=== PATIENT | female | born 1985 ===

== ENCOUNTER 2019-10-03 21:27 | Emergency (ER) | payer MEDICAID, SELFPAY ==
[2019-10-03 21:34] VITALS: BP 145/81; PULSE 88; RESP 16; TEMP 36.3; O2SAT 99; BMI 25.8
--- NOTE | 2019-10-03 21:39 | US_ITS ---
WS: [id number] Ultrasound OB limited. Transabdominal and transvaginal imaging is performed of an early intrauterine gestation. HISTORY: Bleeding and pain. There is an IUP with cardiac activity 122 bpm. Mora-rump length of 0.5 cm corresponds to a gestation of 6 weeks and 2 days. There is a small adjacent subchorionic hemorrhage measuring 1.1 x 0.6 x 0.8 c m. Cervix is closed and normal length. There is a yolk sac. There is a moderate amount of free fluid in the pelvis which is mildly complex with low-level echoes. Fluid extends greatest to the RIGHT adnexa. In the RIGHT ovary there is a thick walled cyst with sli ght increased vascularity. The cystic component measures 1.5 x 1.3 x 1.4 cm. The complex fluid extend s to this complex thick-walled cyst. The LEFT ovary contains small follicles and is normal size at 3. 1 x 1.6 x 1.6 cm. US/US OB lmt with transvaginal IMPRESSION: 1. Intrauterine gestation 6 weeks 2 days with an EDC of 05/26/2020. 2. Moderate amount of complex fluid fluid in the pelvis extending to the RIGHT adnexa and RIGHT ovary. Suspect hemorrhagic corpus luteum cyst. Concomitant ec topic may appear similar but with an intrauterine gestation much less likely.
[2019-10-03 22:00] LABS: Basophils % 0.4 %; Eosinophils # 0.1 10^3/uL (0.0-0.8); Eosinophils % 1.4 %; Hematocrit 38.5 % (37.0-47.0); Hemoglobin 12.9 g/dL (11.5-15.3); Lymphocytes # 2.4 10^3/uL (0.8-4.8); Mean Corpuscular HGB Conc 33.5 g/dL (30.0-36.0); Mean Corpuscular Hemoglobin 30.8 pg (28.0-34.0); Mean Corpuscular Volume 91.9 fL (81-99); Mean Platelet Volume 10.6 fL (7.4-10.4); Monocytes # 0.9 10^3/uL (0.2-0.9); Monocytes % 8.6 %; Neutrophils # 6.9 10^3/uL (1.8-7.7); Neutrophils % 66.3 %; Nucleated Red Blood Cells % 0 %; Platelet Count 317 10^3/cmm (130-400); Red Blood Count 4.19 10^6/uL (4.1-5.3); Red Cell Distribution Width 12.6 % (12.1-15.1); White Blood Count 10.3 10^3/uL (4.0-10.0)
--- NOTE | 2019-10-03 22:32 | ED_ITS ---
Entered by Carmela Tinajero, acting as scribe for Presley Nicole DO Oct 03, 2019 21:27 HPI - Abdominal Pain General: Chief Complaint: Abdominal Pain Stated Complaint: 7WKS PREG, BLEEDING Time Seen by Provider: 10/03/19 22:32 Source: patient Mode of arrival: ambulatory Limitations: no limitations History of Present Illness: HPI narrative: 34 yo f came to the er pov for abd pain, 6-7 weeks pregant and is bleeding. G3, P1. Her first was a miscarriage. She noticed bleeding on Friday, a small amount it stopped by Friday. She started bleeding again at noon today, with increased bleeding throughout the day. It has slowed down now some. Associated Symptoms: Reports nausea; Denies chills, fever(s) and vomiting Review of Systems Const: Denies: fever or chills Eyes: Denies: blurry vision Card: Denies: chest pain or palpitations Resp: Denies: shortness of breath, productive cough or non-productive cough GI: Reports: nausea; Denies: vomiting Skin/Breast: Denies: rash or redness Neuro: Denies: dizziness PFSH ED PFSH: Statuses (acute, chronic, etc) shown below reflect problem list status as previously entered and may not be historically accurate Social History Smoking and tobacco status: never smoked Physical Exam Const: COMMON NORMALS: no apparent distress and oriented x3 Eye: COMMON NORMALS: PERRL and EOMs intact bilaterally PUPIL: Yes PERRL Chest: COMMONS NORMALS: inspection of chest normal Resp: COMMON NORMALS: normal respiratory effort and no use of accessory muscles Cardio: COMMON NORMALS: regular rhythm RHYTHM: regular rhythm GI: PALPATION: Yes tender Details: other (suprapubic) RECTAL EXAM: deferred : SPECULUM EXAM - VAGINA: No vaginal erythema, Yes vaginal bleeding, No vaginal tenderness and No vaginal discharge SPECULUM EXAM - CERVIX: Yes cervical os closed, No tissue present in the cervical os and Yes cervical bleeding (mild, dark blood no clot) OB/EXTERNAL & SPECULUM: vaginal bleeding Neuro: COMMON NORMALS: oriented x3 Skin: COMMON NORMALS: no rashes or lesions noted GENERAL SKIN EXAM: no rashes or lesions noted Course ED course: Pelvic exam showed a closed cervix with really scant old blood at this point. No clots. Her ultrasound though is concerning, as there is fluid in the uterus with a subchorionic bleed. This is by definition a threatened . Heart rate present though. Warning signs for return given. She will follow-up with her mysql database administrator. Vital Signs: Vital signs: Vital Signs Temperature 97.4 F L 10/03/19 21:34 Pulse Rate 88 10/03/19 21:34 Respiratory Rate 16 10/03/19 21:34 Blood Pressure 145/81 10/03/19 21:34 Pulse Oximetry 99 10/03/19 21:34 MDM - Abdominal Pain Lab Data: Labs: Lab Results 10/03/19 10/03/19 10/03/19 Range/Units 21:55 21:55 21:55 WBC 10.3 H (4.0-10.0) 10^3/ uL RBC 4.19 (4.1-5.3) 10^6/u L Hgb 12.9 (11.5-15.3) g/dL Hct 38.5 (37.0-47.0) % MCV 91.9 (81-99) fL MCH 30.8 (28.0-34.0) pg MCHC 33.5 (30.0-36.0) g/dL RDW 12.6 (12.1-15.1) % Plt Count 317 (130-400) 10^3/c mm MPV 10.6 H (7.4-10.4) fL Neut % (Auto) 66.3 % Lymph % (Auto) 23.0 % Loup % (Auto) 8.6 % Eos % (Auto) 1.4 % Baso % (Auto) 0.4 % Neut # (Auto) 6.9 (1.8-7.7) 10^3/u L Lymph # (Auto) 2.4 (0.8-4.8) 10^3/u L Loup # (Auto) 0.9 (0.2-0.9) 10^3/u L Eos # (Auto) 0.1 (0.0-0.8) 10^3/u L Baso # (Auto) 0.0 (0.0-0.1) 10^3/u L Nucleated RBC % (a uto) 0 % Nucleated RBCs # 0.0 /100WBC Sodium (136-145) mmol/L Potassium (3.5-5.1) mmol/L Chloride (98-107) mmol/L Carbon Dioxide (22-29) mmol/L Anion Gap (5-19) BUN (6-20) mg/dL Creatinine (0.5-0.9) mg/dL GFR Calculation (90-130) mL/min Glucose (74-109) mg/dL Calcium (8.5-10.5) mg/dL Total Bilirubin (0.15-1.2) mg/dL AST (0-32) U/L ALT (0-33) U/L Alkaline Phosphata se (35-105) IU/L Total Protein (6.6-8.7) g/dL Albumin (3.5-5.2) g/dL Globulin (1.3-4.6) g/dL Ser , [place]Qnt 97011.00 mIU/mL Blood Type O Positive 10/03/19 Range/Units 21:55 WBC (4.0-10.0) 10^3/ uL RBC (4.1-5.3) 10^6/u L Hgb (11.5-15.3) g/dL Hct (37.0-47.0) % MCV (81-99) fL MCH (28.0-34.0) pg MCHC (30.0-36.0) g/dL RDW (12.1-15.1) % Plt Count (130-400) 10^3/c mm MPV (7.4-10.4) fL Neut % (Auto) % Lymph % (Auto) % Loup % (Auto) % Eos % (Auto) % Baso % (Auto) % Neut # (Auto) (1.8-7.7) 10^3/u L Lymph # (Auto) (0.8-4.8) 10^3/u L Loup # (Auto) (0.2-0.9) 10^3/u L Eos # (Auto) (0.0-0.8) 10^3/u L Baso # (Auto) (0.0-0.1) 10^3/u L Nucleated RBC % (a uto) % Nucleated RBCs # /100WBC Sodium 138 (136-145) mmol/L Potassium 4.1 (3.5-5.1) mmol/L Chloride 101 (98-107) mmol/L Carbon Dioxide 23 (22-29) mmol/L Anion Gap 18.1 (5-19) BUN 10 (6-20) mg/dL Creatinine 0.7 (0.5-0.9) mg/dL GFR Calculation 96.4 (90-130) mL/min Glucose 84 (74-109) mg/dL Calcium 9.9 (8.5-10.5) mg/dL Total Bilirubin 0.3 (0.15-1.2) mg/dL AST 18 (0-32) U/L ALT 11 (0-33) U/L Alkaline Phosphata se 68 (35-105) IU/L Total Protein 7.5 (6.6-8.7) g/dL Albumin 4.7 (3.5-5.2) g/dL Globulin 2.8 (1.3-4.6) g/dL Ser , Lionel i-Qnt mIU/mL Blood Type Discharge Plan Discharge Patient Disposition: Home, Self-Care Clinical Impression: Threatened Condition: Stable Prescriptions: No Action No Known Home Medications RF: 0 Discharge Orders: Discharge Order (Routine); Ordered 10/03/19 Ordered By: Presley Nicole Referrals: Ashleigh Landa MD [Physician] - 1-3 days Discharge Diet: Usual diet Discharge Activity: Limit activity as instructed Patient Instructions: Threatened Miscarriage (ED) Activity Restrictions/Additional Instructions: Pelvic rest (no sexual intercourse) limit lifting to 10 to 15 pounds, limit stairs, squatting, etc. until cleared by your doctor. You need to have your blood test drawn again in 2 to 4 days. Call your doctor's office in the morning to let them know you were here and they can help set this up for you. Return to the emergency room for brisk vaginal bleeding, soaking 1 pad per hour for more than 3 hours. Return for fever greater than 100, vomiting liquids or medications, worsening pain despite treatment, other concerning symptoms. Discharge Date/Time: 10/03/19 23:43 Coding Level of Care Code ED Landmen for Chg Fwd Exam Problem Focused The documentation recorded by the Lior nath Stephanie Lyn, harry re flects the service I personally performed and the decisions made by , Presley Nicole DO Oct 03, 2019:27
[2019-10-03 22:56] LABS: Alanine Aminotransferase 11 U/L (0-33); Albumin Level 4.7 g/dL (3.5-5.2); Alkaline Phosphatase 68 IU/L (35-105); Anion Gap 18.1 (5-19); Blood Urea Nitrogen 10 mg/dL (6-20); Calcium 9.9 mg/dL (8.5-10.5); Carbon Dioxide 23 mmol/L (22-29); Chloride 101 mmol/L (98-107); Globulin 2.8 g/dL (1.3-4.6); Glomerular Filtration Rate 96.4 mL/min (90-130); Glucose 84 mg/dL (74-109); Potassium 4.1 mmol/L (3.5-5.1); Sodium 138 mmol/L (136-145); Total Bilirubin 0.3 mg/dL (0.15-1.2); Total Protein 7.5 g/dL (6.6-8.7)
[2019-10-03 22:58] LABS: Aspartate Amino Transferase 18 U/L (0-32)
--- NOTE | 2019-10-03 22:59 | PC.NURSE ---
patient still in ultrasound at this time
== END 2019-10-03 23:43 | disposition home or self-care (01) ==
PROVIDERS: Emergency Medicine; Emergency Provider Emergency Medicine
DX: O20.0 Threatened abortion (principal); Z3A.01 Less than 8 weeks gestation of pregnancy
CPT/HCPCS: 36415; 76815; 76817; 80053; 84702; 85025; 86900; 99281

== ENCOUNTER 2020-01-28 10:58 | Outpatient (CLI) | payer MEDICAID, SELFPAY ==
[2020-01-28 11:28] VITALS: BP 124/75; PULSE 93
[2020-01-28 11:47] VITALS: BP 110/65; PULSE 80
[2020-01-28 12:02] VITALS: BP 119/65; PULSE 79
[2020-01-28 12:17] VITALS: BP 115/67; PULSE 77
[2020-01-28 12:30] VITALS: RESP 16; TEMP 36.4
[2020-01-28 12:32] VITALS: BP 99/65; PULSE 75
== END 2020-01-28 12:50 | disposition home or self-care (01) ==
LOC: OPOB 11:01 → OBGYN 11:01
PROVIDERS: Visit Provider Family Medicine
DX: O36.8190 Decreased fetal movements, unspecified trimester, not applicable or unspecified (principal); Z3A.00 Weeks of gestation of pregnancy not specified
CPT/HCPCS: 59025; 99211

== ENCOUNTER 2020-05-10 09:40 | Inpatient (IN) | payer MEDICAID, SELFPAY ==
[2020-05-10] VITALS (13 sets, daily range): BP systolic 101–142; BP diastolic 59–95; PULSE 55–100; RESP 16–17; TEMP 36.5–37.2; O2SAT 98
--- NOTE | 2020-05-10 09:40 | PC.NURSE ---
Pt arrived on OB unit at 0940 with c/o contractions and SROM at 0300. Pt was assessed by Zahra Rebolledo RN at this time.
[2020-05-10] MEDS: acetaminophen 325 mg Tablet 650 MG PO (11:10)
[2020-05-10 15:59] LABS: Basophils # 0.1 10^3/uL (0.0-0.1); Basophils % 0.3 %; Eosinophils % 0.1 %; Hematocrit 37.2 % (37.0-47.0); Hemoglobin 12.4 g/dL (11.5-15.3); Lymphocytes # 1.1 10^3/uL (0.8-4.8); Lymphocytes % 4.8 %; Mean Corpuscular HGB Conc 33.3 g/dL (30.0-36.0); Mean Corpuscular Hemoglobin 32.5 pg (28.0-34.0); Mean Corpuscular Volume 97.4 fL (81-99); Mean Platelet Volume 12.6 fL (7.4-10.4); Monocytes # 1.3 10^3/uL (0.2-0.9); Monocytes % 5.6 %; Neutrophils # 20.04 10^3/uL (1.8-7.7); Neutrophils % 88.4 %; Nucleated Red Blood Cells % 0 %; Platelet Count 193 10^3/cmm (130-400); Red Blood Count 3.82 10^6/uL (4.1-5.3); Red Cell Distribution Width 13.7 % (12.1-15.1); White Blood Count 22.7 10^3/uL (4.0-10.0)
--- NOTE | 2020-05-10 17:22 | P.PCNOB_ITS ---
Delivery Note: Date of delivery: May 10, 2020 Pre-Delivery Course: The patient had routine care at [facility]. There were no complications during the . Her labs were unremarkable. She was GBS positive. Delivery: This is a 34-year-old at 37 weeks 5 days gestation who presented to labor and delivery in active labor. She was already ruptured upon presentation to labor and delivery and was 9 cm dilated feeling like she needed to push. She stated that her water broke at approximately 3:00 in the morning, around 7 hours prior to delivery. She declined pain management and was comfortable delivering in hands and knee position. Although she was GBS positive there was no time to initiate antibiotic prophylaxis. She had a normal spontaneous vaginal delivery of a viable male infant weight 6 pounds 11 ounces, 3025 g, Apgars 9 and 10 over an intact perineum. The was suctioned at delivery. He was placed skin to skin with mother who requested delayed cord clamping. The cord was clamped and cut. Cord blood was obtained. The placenta was delivered grossly intact and normal to inspection. There were no lacerations. Mother and did well after delivery. Estimated blood loss 150 mL. A&P Assessment and plan (1) with 37 weeks completed gestation: Status: Acute (2) Normal spontaneous vaginal delivery: Patient requested no nonemergent interventions including IV and Pitocin. Routine care Status: Acute (3) Positive GBS test: Status: Acute Coding Level of Care Code Acute Cargo Operations Agent for Chg Fwd Diagnoses with 37 weeks completed gestation Z3A.37 Normal spontaneous vaginal delivery O80 Positive GBS test B95.1
[2020-05-10] MEDS: HYDROcodone-acetaminophen 5-325 mg Tablet PO (23:25)
[2020-05-11 03:27] LABS: Hematocrit 29.5 % (37.0-47.0); Hemoglobin 9.6 g/dL (11.5-15.3); Mean Corpuscular HGB Conc 32.5 g/dL (30.0-36.0); Mean Corpuscular Hemoglobin 32.4 pg (28.0-34.0); Mean Corpuscular Volume 99.7 fL (81-99); Mean Platelet Volume 11.6 fL (7.4-10.4); Platelet Count 144 10^3/cmm (130-400); Red Blood Count 2.96 10^6/uL (4.1-5.3); White Blood Count 15.8 10^3/uL (4.0-10.0)
[2020-05-11 04:15] VITALS: BP 96/60; PULSE 77; RESP 15; TEMP 36.8; O2SAT 98
[2020-05-11 10:37] VITALS: BP 129/79; PULSE 77; RESP 16
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
[2020-05-11 17:15] VITALS: BP 116/72; PULSE 77; RESP 16; TEMP 36.6; O2SAT 98
[2020-05-11 22:00] VITALS: BP 126/78; PULSE 92; RESP 15; TEMP 36.8; O2SAT 98
--- NOTE | 2020-05-12 09:42 | PM.OBGYDC ---
Discharge Providers STEAM STATION SUPERVISOR Date of Admission: 05/10/20 09:40 Date of Discharge: 05/12/20 Attending Provider at Admission: Ashleigh Landa MD Attending Provider at Discharge: Ashleigh Landa MD Primary Care Provider: [facility] Diagnoses at Discharge Discharge Diagnosis (1) Positive GBS test: Status: Acute (2) Normal spontaneous vaginal delivery: Status: Acute (3) with 37 weeks completed gestation: Status: Acute Reason for Visit Reason for Visit: ABD PAIN IUP Hospital Course Hospital Course: This is a 34-year-old G2 now P2 who had a normal spontaneous vaginal delivery of a viable male . After delivery mother and infant did well. Mother was known to be GBS positive and presented in advanced labor so she did not have time to receive appropriate prophylactic antibiotics. For that reason was kept for at least 48 hours inpatient for monitoring. On the day of discharge she was doing well and had no complaints. Information Peripartum Data: Infant Delivery Method: Vaginal Physical Exam Const: COMMON NORMALS: no acute distress and alert GENERAL APPEARANCE: cooperative and comfortable HENMT: COMMON NORMALS: normocephalic HEAD & SCALP: normocephalic Eye: COMMON NORMALS: Equal, round and reactive pupils present and EOMs intact bilaterally PUPIL: Yes Equal, round and reactive pupils present Chest: COMMONS NORMALS: normal inspection of the chest GI: COMMON NORMALS: Soft to palpation (Fundus firm U- 3) PALPATION: Yes Soft to palpation (Fundus firm U- 3) and No Tenderness to palpation present (GI) Extremity: GENERAL: No calf tenderness and No edema Neuro: SENSORIUM/ORIENTATION: Yes alert Discharge Data Vitals: Last Vital Signs Temp 98.3 F 05/11/20 22:00 Pulse 92 05/11/20 22:00 Resp 15 05/11/20 22:00 BP 126/78 05/11/20 22:00 Pulse Ox 98 05/11/20 22:00 Discharge Plan Discharge Patient Disposition: Home Condition: Stable Prescriptions: Continued folic acid 800 mcg Tablet 0.8 mg PO DAILY RF: 0 Discharge Orders: Discharge Order (Routine); Ordered 05/12/20 Ordered By: Ashleigh Landa Referrals: Ashleigh Landa MD [Physician] - 1 month Discharge Diet: Usual diet Discharge Activity: Limit activity as instructed Discharge Attestations STEAM STATION SUPERVISOR Time Spent in Discharge Care*: less than 30 min Coding Level of Care Code Acute Hazard Waste Handler for Chg Fwd Diagnoses Positive GBS test B95.1 Normal spontaneous vaginal delivery O80 with 37 weeks completed gestation Z3A.37
[2020-05-12] MEDS: prenatal vitamin Capsule 1 CAP PO (10:18)
[2020-05-12] MEDS: docusate sodium 100 mg Capsule PO (10:18)
[2020-05-12 10:25] VITALS: BP 122/74; PULSE 86; RESP 18; TEMP 37.3
[2020-05-12 11:30] VITALS: BP 122/74; PULSE 86; RESP 18; TEMP 37.3
== END 2020-05-12 11:35 | disposition home or self-care (01) | DRG 807 ==
PROVIDERS: Admitting Provider Family Medicine; Visit Provider Family Medicine
DX: O42.02 Full-term premature rupture of membranes, onset of labor within 24 hours of rupture (principal); Z37.0 Single live birth; O99.824 Streptococcus B carrier state complicating childbirth; Z3A.37 37 weeks gestation of pregnancy
CPT/HCPCS: 12345; 36415; 59409; 85025; 85027; 99211

== ENCOUNTER 2022-08-19 10:05 | Outpatient (CLI) | payer MEDICAID, SELFPAY ==
[2022-08-19 10:18] VITALS: BP 125/73; PULSE 76
[2022-08-19 10:32] VITALS: BMI 25.6
[2022-08-19 10:33] VITALS: BP 114/59; PULSE 67; RESP 16
[2022-08-19 10:49] VITALS: BP 111/60; PULSE 75
== END 2022-08-19 10:55 | disposition home or self-care (01) ==
LOC: OPOB 10:12 → OBGYN 10:14
PROVIDERS: PCP Family Medicine; Visit Provider Family Medicine
DX: O09.519 Supervision of elderly primigravida, unspecified trimester (principal); Z3A.00 Weeks of gestation of pregnancy not specified
CPT/HCPCS: 59025

== ENCOUNTER 2022-08-22 09:45 | Outpatient (CLI) | payer MEDICAID, SELFPAY ==
[2022-08-22 10:00] VITALS: BP 119/76; PULSE 75
[2022-08-22 10:21] VITALS: BP 112/69; PULSE 83
[2022-08-22 10:34] VITALS: BP 112/69; PULSE 83; RESP 18; TEMP 36.7
== END 2022-08-22 10:35 | disposition home or self-care (01) ==
LOC: OPOB 09:53 → OBGYN 09:54
PROVIDERS: PCP Family Medicine; Visit Provider Family Medicine
DX: O26.899 Other specified pregnancy related conditions, unspecified trimester (principal); Z3A.00 Weeks of gestation of pregnancy not specified
CPT/HCPCS: 59025; 99211

== ENCOUNTER 2022-08-26 12:35 | Outpatient (CLI) | payer MEDICAID, SELFPAY ==
[2022-08-26 13:06] VITALS: BP 128/75; PULSE 72
[2022-08-26 13:36] VITALS: BP 149/69; PULSE 74
== END 2022-08-26 13:39 | disposition home or self-care (01) ==
LOC: OPOB 12:40 → OBGYN 12:40
PROVIDERS: PCP Family Medicine; Visit Provider Family Medicine
DX: O09.519 Supervision of elderly primigravida, unspecified trimester (principal); Z3A.00 Weeks of gestation of pregnancy not specified
CPT/HCPCS: 59025

== ENCOUNTER 2022-08-28 10:05 | Inpatient (IN) | payer MEDICAID, SELFPAY ==
[2022-08-19 10:33] VITALS: RESP 16
[2022-08-28] VITALS (78 sets, daily range): BP systolic 92–164; BP diastolic 46–110; PULSE 66–118; RESP 16–18; TEMP 35.8–36.8; O2SAT 77–100; BMI 30.5
[2022-08-28] MEDS: oxytocin 30 UNIT/500 ML BAG IV (08:00)
[2022-08-28 08:02] LABS: Basophils # 0.1 10^3/uL (0.0-0.1); Basophils % 0.5 %; Eosinophils # 0.2 10^3/uL (0.0-0.8); Eosinophils % 1.1 %; Hematocrit 41.7 % (37.0-47.0); Hemoglobin 13.6 g/dL (11.5-15.3); Lymphocytes # 1.7 10^3/uL (0.8-4.8); Lymphocytes % 11.6 %; Mean Corpuscular HGB Conc 32.6 g/dL (30.0-36.0); Mean Corpuscular Hemoglobin 32.3 pg (28.0-34.0); Mean Platelet Volume 11.5 fL (7.4-10.4); Monocytes # 1.2 10^3/uL (0.2-0.9); Monocytes % 8.1 %; Neutrophils # 11.53 10^3/uL (1.8-7.7); Neutrophils % 77.5 %; Nucleated Red Blood Cells % 0 %; Platelet Count 204 10^3/cmm (130-400); Red Blood Count 4.21 10^6/uL (4.1-5.3); Red Cell Distribution Width 13.3 % (12.1-15.1); White Blood Count 14.9 10^3/uL (4.0-10.0)
[2022-08-28] MEDS: dextrose 5%-lactated ringers 1,000 ML 125 ML IV (08:04)
[2022-08-28] MEDS: ampicillin 2,000 MG in sodium chloride 0.9% (plus) 50 ML 100 MG IV (08:04)
[2022-08-28] MEDS: ampicillin 1,000 MG in sodium chloride 0.9% (plus) 50 ML 100 MG IV (11:05)
--- NOTE | 2022-08-28 12:45 | PM.OPHPUD ---
Labor & Delivery H&P Update Date of Procedure: August 28, 2022 Date H&P Performed: 08/27/22 Admission Diagnosis: Induction of labor Primary indication for procedure: Advanced Maternal Age IUP at 39w5d
--- NOTE | 2022-08-28 12:46 | P.PCNOB_ITS ---
Delivery Note: Date of delivery: August 28, 2022 Estimated blood loss (mL): 350 Pre-Delivery Course: She had routine care at [facility]. There were no complications during the but she was considered high risk for advanced maternal age. Delivery: This is a 37-year-old at 39 weeks 5 days gestation who presented to labor and delivery for planned induction of labor. She was being induced for advanced maternal age at term. She has been receiving twice weekly NSTs since about 35 weeks gestation. Mother is known to be GBS positive so she was started on ampicillin protocol. Her cervix was favorable so she was started on Pitocin. She had spontaneous rupture of membranes with clear fluid. She declined pain management. When she was 7 cm dilated a 4 bag was palpable and was artificially ruptured with clear fluid. Less than 30 minutes later she delivered via normal spontaneous vaginal delivery of a viable female weight 3330 g, 7 pounds 5 ounces, Apgars 8 and 9 over an intact perineum. There was a loose nuchal cord that was rrduced upon delivery. the was suctioned at delivery and placed on the mother's chest. The cord was clamped and cut. Cord blood was obtained. The placenta was a little stubborn at the internal cervical os but once that was manually extracted the rest of the placenta came easily. It was grossly intact and normal to inspection. There were some trailing membranes that were teased out using a ringed forcep. There were no lacerations. Mother and infant were doing well after delivery. Coding Level of Care Code Acute District Sales Manager for Saurav Pond
[2022-08-28] MEDS: acetaminophen 325 mg Tablet 650 MG PO (13:08)
[2022-08-28] MEDS: miSOPROStol 200 mcg Tablet 800 MCG PR (13:30)
[2022-08-28] MEDS: oxytocin 30 UNIT/500 ML BAG 600 UNIT IV (13:30)
[2022-08-28] MEDS: fentaNYL 50 mcg/mL INJ 2mL IVP ×3 (13:45→14:15)
--- NOTE | 2022-08-28 14:29 | PM.OP ---
Operative Report Date of procedure: August 28, 2022 Pre-op diagnosis: hemorrhage Retained products of conception Post-op diagnosis: Retained products of conception Procedure done: Bedside conscious sedation by Dr. Lombardi Bedside manual exploration and removal of placental pieces Specimens removed/disposition: Retained placenta Surgeon: Ashleigh Landa MD Estimated blood loss: Immediately prior to procedure 1300 mL During procedure 500 mL Brief History: I was notified by nursing that the patient was having significant bleeding. They had already initiated bleeding protocol and patient was receiving Pitocin, Transexemic acid, and 800 mcg of Cytotec rectally. When I presented to bedside the patient's fundus was firm. Upon exploration of the vaginal vault a large amount of clot approximately 500 mL was present and manually evacuated. It was suspected that the patient likely had some retained placental tissue. We gave the patient 50 mcg of fentanyl and I attempted manual exploration of the uterus. The lower uterine segment and cervix were wide open and a walnut shell sized portion of placenta was manually removed. At this point we called anesthesia for help with conscious sedation as the patient would not have tolerated another exam. 4 units of PRBC were placed on hold. Pt recieved a second large bore IV. Procedure: Dr. Lombardi arrived and performed conscious sedation at the bedside. I was then able to manually explore the uterus up to the fundus and extract some small clots but I did not palpate any remaining products of conception. By this time the patient's bleeding had significantly abated. There were no clots within the vaginal vault. The cervix still felt very open and floppy. I did not appreciate any cervical lacerations. The procedure was terminated. Pt remained in her room for recovery.
[2022-08-28] MEDS: ceFAZolin 2,000 MG in sodium chloride 0.9% (plus) 50 ML 200 MG IV (14:32)
--- NOTE | 2022-08-28 14:37 | ANES.PREANE2 ---
Pre-Anesthetic Assessment Height/Weight: Height 1.73 m Weight 91.172 kg Temp Pulse Resp BP Pulse Ox O2 Del Method 96.4 F L 84 16 113/63 100 08/28/22 11:45 08/28/22 14:34 08/28/22 13:55 08/28/22 14:34 08/28/22 14:30 08/28/22 08:31 EUA Familial anesthetic complications: none Was Beta Pedro Pablo taken within 24 hours: N/A Was Clonidine taken within 24 hours: N/A Social No alcohol and No tobacco Exam alert, oriented x 3, clear to auscultation bilaterally and regular rate & rhythm Airway Submandibular: within normal limits Cervical ROM: within normal limits Mallampati: Class II Dentition: full Anesthetic Plan ASA status: 2E Anesthesia: MAC Other: bleeding Medications/Allergies Home Medications Medication Instructions Recorded Confirmed Last Taken Type folic acid 800 mcg tablet 0.8 mg PO DAILY 01/28/20 01/28/20 Unknown History Allergies Allergy/AdvReac Type Severity Reaction Status Date / Time No Known Allergies Allergy Verified 10/03/19 21:34 Current Medications Generic Name Dose Route Start Last Admin Trade Name Freq PRN Reason Stop Dose Admin Acetaminophen 650 mg 08/28/22 07:45 08/28/22 13:08 Acetaminophen 325 Mg Tablet PO 650 mg Q6H PRN Administration Mild pain or temp > 100.4 Fentanyl 25 - 100 mcg 08/28/22 07:45 08/28/22 14:15 Fentanyl 50 Mcg/Ml Inj 2ml IVP 50 mcg Q1H PRN Administration SEVERE PAIN Oxytocin 30 unit in 500 mls @ 600 mls/hr 08/28/22 07:45 08/28/22 13:30 Pitocin IV 600 mls/hr .Q50M PRN 600 mls/hr After delivery of Administration Protocol Tranexamic Acid 1,000 mg/ 110 mls @ 330 mls/hr 08/28/22 07:45 08/28/22 13:31 Sodium Chloride IV 330 mls/hr Q30M PRN Administration BLEEDING Ampicillin Sodium 1,000 mg/ 50 mls @ 100 mls/hr 08/28/22 11:45 08/28/22 11:05 Sodium Chloride IV 100 mls/hr Q4H KP Administration Protocol Dextrose/Lactated Ringer's 1,000 mls @ 125 mls/hr 08/28/22 07:45 08/28/22 08:04 Dextrose 5%-Lactated Ringers IV 125 mls/hr .Q8H KP Administration Oxytocin 30 unit in 500 mls @ 1 mls/hr 08/28/22 07:45 08/28/22 09:32 Pitocin IV 13 milliunit/min .Q24H KP 13 mls/hr Titration Protocol 1 MILLIUNIT/MIN Cefazolin Sodium 2,000 mg/ 50 mls @ 100 mls/hr 08/28/22 14:22 08/28/22 14:32 Sodium Chloride IV 08/28/22 14:51 200 mls/hr ONCE ONE 200 mls/hr Administration Protocol PFSH Anesthesia Social History Smoking and tobacco status: never smoked Female Reproductive History : 4 Data Anesthesia 08/28/22 07:40 Short CBC 08/28/22 Range/Units 07:40 WBC 14.9 H (4.0-10.0) 10^3/uL Hgb 13.6 (11.5-15.3) g/dL Hct 41.7 (37.0-47.0) % MCV 99.0 (81-99) fl Plt Count 204 (130-400) 10^3/cmm Neut % (Auto) 77.5 % Neut # (Auto) 11.53 H (1.8-7.7) 10^3/uL Blood Bank 08/28/22 07:40 Blood Type O Positive Rho(D) Type Positive Antibody Screen Negative Cardiac Studies: No Data to Display
--- NOTE | 2022-08-28 14:40 | ANE.PACU2 ---
Inpatient post-anesthesia follow up: Airway intact: Yes Vital signs: Temperature 96.4 F Pulse Rate 83 Respiratory Rate 16 Blood Pressure 117/67 Pulse Oximetry 99 Oxygen Delivery Me thod Room Air Oxygen Flow Rate Fraction of Inspir ed Oxygen Hydration adequate: Yes Nausea and vomiting: No Pain level: 2 Mental status: Baseline
[2022-08-28 14:51] LABS: Hematocrit 41.9 % (37.0-47.0); Hemoglobin 12.7 g/dL (11.5-15.3)
[2022-08-28] MEDS: ibuprofen 800 mg tablet PO ×2 (15:04→20:31)
--- NOTE | 2022-08-28 16:30 | PC.NURSE ---
Patient assisted up to bathroom by RNx2. Patient ambulated well to bathroom and had no c/o dizziness or lightheadedness. Patient requested RN leave bathroom for her privacy. RN outside bathroom door and heard patient make a sound. RN entered bathroom to find patient slumped over on toilet, patient had lost consciousness but quickly regained consciousness and began vomiting. Patient was assisted to room at this time and did well. Will continue to monitor.
--- NOTE | 2022-08-28 16:57 | PC.NURSE ---
RN at [facility] from [phone]
[2022-08-28 21:13] LABS: Basophils # 0.1 10^3/uL (0.0-0.1); Basophils % 0.3 %; Eosinophils % 0.3 %; Hematocrit 32.4 % (37.0-47.0); Hemoglobin 10.9 g/dL (11.5-15.3); Lymphocytes # 0.6 10^3/uL (0.8-4.8); Lymphocytes % 3.5 %; Mean Corpuscular HGB Conc 33.6 g/dL (30.0-36.0); Mean Corpuscular Hemoglobin 32.9 pg (28.0-34.0); Mean Corpuscular Volume 97.9 fl (81-99); Mean Platelet Volume 11.5 fL (7.4-10.4); Monocytes # 0.9 10^3/uL (0.2-0.9); Monocytes % 5.9 %; Neutrophils # 14.11 10^3/uL (1.8-7.7); Neutrophils % 89.1 %; Nucleated Red Blood Cells % 0 %; Platelet Count 193 10^3/cmm (130-400); Red Blood Count 3.31 10^6/uL (4.1-5.3); Red Cell Distribution Width 13.3 % (12.1-15.1); White Blood Count 15.8 10^3/uL (4.0-10.0)
[2022-08-29] VITALS (7 sets, daily range): BP systolic 107–121; BP diastolic 69–73; PULSE 68–99; RESP 16; TEMP 36.7–39.4; O2SAT 98
[2022-08-29 00:57] LABS: Hematocrit 28.6 % (37.0-47.0); Hemoglobin 9.7 g/dL (11.5-15.3); Mean Corpuscular HGB Conc 33.9 g/dL (30.0-36.0); Mean Corpuscular Hemoglobin 32.8 pg (28.0-34.0); Mean Corpuscular Volume 96.6 fl (81-99); Mean Platelet Volume 11.1 fL (7.4-10.4); Platelet Count 169 10^3/cmm (130-400); Red Blood Count 2.96 10^6/uL (4.1-5.3); Red Cell Distribution Width 13.5 % (12.1-15.1)
[2022-08-29] MEDS: ibuprofen 800 mg tablet PO ×2 (09:43→16:03)
[2022-08-29] MEDS: prenatal vitamin Capsule 1 CAP PO (09:44)
[2022-08-29] MEDS: docusate sodium 100 mg Capsule PO (09:44)
--- NOTE | 2022-08-29 11:36 | P.PN_ITS ---
Subjective Subjective: She is feeling well today and has no complaints. She states that she only has little bit of uterine abdominal pain when she is breast-feeding. She admits to a cough but it has been present for a month. Vitals/I&O/Wt Last Vital Signs Temp 100.0 F H 08/29/22 10:51 Pulse 99 08/29/22 10:00 Resp 16 08/29/22 10:00 BP 120/69 08/29/22 10:00 Pulse Ox 98 08/29/22 10:00 O2 Del Method 08/29/22 10:00 08/28/22 08/29/22 08/29/22 22:59 06:59 14:59 Intake Total 1842.05 / 2260.000 Output Total 1500 / 1500 Balance 342.05 / 760.000 Weight last 48 hrs Weight 91.172 kg Physical Exam Narrative: Alert and oriented, sitting up in bed changing the infant. Heart regular rate and rhythm, lungs clear to auscultation bilaterally, abdomen is soft and nontender, fundus is firm and U- 2, extremities have a little nonpitting edema and no calf tenderness Data 08/29/22 00:49 A&P Assessment and plan (1) hemorrhage, delivered, current hospitalization: Within an hour of delivery -Due to small portion of retained placenta that was extracted using conscious sedation. The patient's hemoglobin dropped from 13.6- 9.7. She did experience 1 episode of syncope yesterday shortly after the hemorrhage but she has been doing well since then. She is ambulating, tolerating a regular diet, does not complain of any dizziness or shortness of breath. Her bleeding has been scant overnight. Continue to monitor inpatient for at least another 24 hours. (2) fever, current hospitalization: Unclear etiology. The patient spiked a temperature this morning of 103. She denies any symptoms other than the cough. Her abdomen and fundus is extremely NONtender, especially for the amount of rubbing she received during her hem orrhage. We will run a respiratory viral panel on her. She had received 2 doses of ampicillin prior to delivery and received 2 g Ancef immediately after manual extraction of the placental piece. She has no calf tenderness and no palpable cords. (3) Normal spontaneous vaginal delivery: Routine care (4) Positive GBS test: She did receive 2 doses of ampicillin prior to delivery Attestations Medical Necessity Statement*: Routine care and management of hemorrhage Coding Level of Care Code Acute Mortar Mixer Operator for Chg Fwd Diagnoses hemorrhage, delivered, current hospitalization O72.1 fever, current hospitalization O86.4 Normal spontaneous vaginal delivery O80 Positive GBS test B95.1
[2022-08-29 15:24] LABS: Adenovirus Not Detected (NOT DETECT); Chlamydia Pneumoniae Not Detected (NOT DETECT); Coronavirus 229E,HKU1,NL63,OC4 Not Detected (NOT DETECT); Human Metapneumovirus Not Detected (NOT DETECT); Human Rhinovirus/Enterovirus Detected (NOT DETECT); Influenza A Not Detected (NOT DETECT); Influenza A H1 Not Detected (NOT DETECT); Influenza A H1-2009 Not Detected (NOT DETECT); Influenza A H3 Not Detected (NOT DETECT); Influenza B Not Detected (NOT DETECT); Mycoplasma Pneumoniae Not Detected (NOT DETECT); Parainfluenza Virus Type 1 Not Detected (NOT DETECT); Parainfluenza Virus Type 2 Not Detected (NOT DETECT); Parainfluenza Virus Type 3 Not Detected (NOT DETECT); Parainfluenza Virus Type 4 Not Detected (NOT DETECT); Respiratory Syncytial Virus A Not Detected (NOT DETECT); Respiratory Syncytial Virus B Not Detected (NOT DETECT); SARS-COV-2 Not Detected (NOT DETECT)
[2022-08-29] MEDS: ampicillin-sulbactam 3 GM in sodium chloride 0.9% (plus) 50 ML IV (22:13)
[2022-08-30] MEDS: ampicillin-sulbactam 3 GM in sodium chloride 0.9% (plus) 50 ML IV ×4 (03:56→22:29)
[2022-08-30 03:57] VITALS: BP 99/61; PULSE 85; RESP 15; TEMP 38.7
[2022-08-30 07:50] VITALS: RESP 18; TEMP 37.7
[2022-08-30] MEDS: prenatal vitamin Capsule 1 CAP PO (09:56)
[2022-08-30] MEDS: ibuprofen 800 mg tablet PO ×2 (09:56→22:28)
[2022-08-30 10:03] VITALS: BP 109/69; PULSE 88; TEMP 36.4; O2SAT 98
--- NOTE | 2022-08-30 14:25 | PM.PN ---
Subjective Subjective: She spiked another fever last night of 102.4. She was very symptomatic with shaking and chills. I went ahead and started her on ampicillin sulbactam last evening IV every 6 hours. She declined any ibuprofen so her temperature trended down on its own. She is feeling well today and is anxious to go home. Vitals/I&O/Wt Last Vital Signs Temp 97.5 F L 08/30/22 10:03 Pulse 88 08/30/22 10:03 Resp 18 08/30/22 07:50 BP 109/69 08/30/22 10:03 Pulse Ox 98 08/30/22 10:03 O2 Del Method 08/30/22 10:03 08/29/22 08/30/22 08/30/22 22:59 06:59 14:59 Intake Total 1050 / 1050 950 / 2000 Balance 1050 / 1050 950 / 2000 Physical Exam Narrative: Alert and oriented, sitting up in bed, heart regular rate and rhythm, lungs clear to auscultation bilaterally, abdomen is soft and nontender, fundus is firm, extremities have nonpitting edema but no calf tenderness Data 08/29/22 00:49 A&P Assessment and plan (1) fever, current hospitalization: Spiked again last night to 102.4. The patient was not having any abdominal tenderness or purulent vaginal discharge however due to the extensive manual uterine evacuation she is at risk for endometritis. I went ahead and started her on ampicillin sulbactam last evening. Her temperature has trended down on its own without antipyretic medication. I would like to keep her on IV antibiotics for at least 24 hours and see how she does this evening. Hopefully she will be ready for discharge home in the morning (2) hemorrhage, delivered, current hospitalization: Bleeding has been average to light. (3) Positive GBS test: (4) Normal spontaneous vaginal delivery: (5) with 37 weeks completed gestation: Attestations Medical Necessity Statement*: Treatment of fever with IV antibiotics r Coding Level of Care Code Acute Schedule Supervisor for [facility] Fwd Diagnoses fever, current hospitalization O86.4 hemorrhage, delivered, current hospitalization O72.1 Positive GBS test B95.1 Normal spontaneous vaginal delivery O80 with 37 weeks completed gestation Z3A.37
[2022-08-30 22:30] VITALS: BP 93/59; PULSE 79; RESP 16; TEMP 36.9; O2SAT 97
[2022-08-31 04:00] VITALS: BP 91/54; PULSE 82; RESP 16; TEMP 36.8; O2SAT 96
[2022-08-31] MEDS: ampicillin-sulbactam 3 GM in sodium chloride 0.9% (plus) 50 ML IV ×2 (05:23→10:07)
--- NOTE | 2022-08-31 10:15 | PM.DCS ---
Discharge Providers Date of Admission: 08/28/22 10:05 Date of Discharge: August 31, 2022 Attending Provider at Admission: Ashleigh Landa MD Attending Provider at Discharge: Ashleigh Landa MD Primary Care Provider: Ashleigh Landa MD Diagnoses at Discharge Discharge Diagnosis (1) fever, current hospitalization: Status: Acute (2) hemorrhage, delivered, current hospitalization: Status: Acute (3) Positive GBS test: Status: Acute (4) Normal spontaneous vaginal delivery: Status: Acute (5) with 37 weeks completed gestation: Status: Acute Reason for Visit Reason for Visit: induction Hospital Course Hospital Course This is a 37-year-old G3 now P3 who was admitted for induction at 39 weeks 5 days gestation. She had a normal spontaneous vaginal delivery of a viable female infant. did well after delivery. Mother had an immediate hemorrhage with a small portion of retained piece of placenta. She did have 1 episode of syncope the same day but afterwards recovered nicely and did not require any blood transfusions. She did spike a fever of 103. Her uterus was not tender but due to the amount of manipulation she was started on ampicillin/sulbactrum. She has now been afebrile for greater than 24 hours and is doing well and is requesting discharge home. Physical Exam Narrative: Alert and oriented, sitting up in bed holding baby, heart regular rate and rhythm, lungs clear to auscultation bilaterally, abdomen is soft and nontender, fundus is firm and U- 3, extremities have trace edema but no calf tenderness Discharge Data Studies Completed and Pending Pending at discharge Category Date Time Status RED BLOOD CELLS [Leukocyte Reduced RBC] Stat Lab 08/28/22 07:40 Results Type and Screen Stat Lab 08/28/22 07:40 Results Laboratory Results WBC 12.0 10^3/uL (4.0-10.0) H 08/29/22 00:49 Corrected WBC Cancelled 08/28/22 20:00 RBC 2.96 10^6/uL (4.1-5.3) L 08/29/22 00:49 Hgb 9.7 g/dL (11.5-15.3) L 08/29/22 00:49 Hct 28.6 % (37.0-47.0) L 08/29/22 00:49 MCV 96.6 fl (81-99) 08/29/22 00:49 MCH 32.8 pg (28.0-34.0) 08/29/22 00:49 MCHC 33.9 g/dL (30.0-36.0) 08/29/22 00:49 RDW 13.5 % (12.1-15.1) 08/29/22 00:49 Plt Count 169 10^3/cmm (130-400) 08/29/22 00:49 MPV 11.1 fL (7.4-10.4) H 08/29/22 00:49 Gran % Cancelled 08/28/22 20:00 Neut % (Auto) 89.1 % 08/28/22 20:58 Lymph % (Auto) 3.5 % 08/28/22 20:58 [place] % (Auto) 5.9 % 08/28/22 20:58 Eos % (Auto) 0.3 % 08/28/22 20:58 Baso % (Auto) 0.3 % 08/28/22 20:58 Neut # (Auto) 14.11 10^3/uL (1.8-7.7) H 08/28/22 20:58 Lymph # (Auto) 0.6 10^3/uL (0.8-4.8) L 08/28/22 20:58 [place] # (Auto) 0.9 10^3/uL (0.2-0.9) 08/28/22 20:58 Eos # (Auto) 0.0 10^3/uL (0.0-0.8) 08/28/22 20:58 Baso # (Auto) 0.1 10^3/uL (0.0-0.1) 08/28/22 20:58 Absolute Gran (auto) Cancelled 08/28/22 20:00 Nucleated RBC % (auto) 0 % 08/28/22 20:58 Nucleated RBCs # 0.0 /100WBC 08/28/22 20:58 Nasal Influ A H1 2008 PCR Not detected (NOT DETECT) 08/29/22 11:45 Adenovirus (PCR) Not detected (NOT DETECT) 08/29/22 11:45 C. pneumoniae DNA (PCR) Not detected (NOT DETECT) 08/29/22 11:45 Coronavirus 229E (PCR) Not detected (NOT DETECT) 08/29/22 11:45 Human Metapneumovir PCR Not detected (NOT DETECT) 08/29/22 11:45 Influenza A (H1) PCR Not detected (NOT DETECT) 08/29/22 11:45 Influenza A (H3) PCR Not detected (NOT DETECT) 08/29/22 11:45 Influenza Type A (PCR) Not detected (NOT DETECT) 08/29/22 11:45 Influenza Type B (PCR) Not detected (NOT DETECT) 08/29/22 11:45 M. pneumoniae (PCR) Not detected (NOT DETECT) 08/29/22 11:45 Parainfluenza 1 (PCR) Not detected (NOT DETECT) 08/29/22 11:45 Parainfluenza 2 (PCR) Not detected (NOT DETECT) 08/29/22 11:45 Parainfluenza 3 (PCR) Not detected (NOT DETECT) 08/29/22 11:45 Parainfluenza 4 (PCR) Not detected (NOT DETECT) 08/29/22 11:45 RSV Type A (PCR) Not detected (NOT DETECT) 08/29/22 11:45 RSV Type B (PCR) Not detected (NOT DETECT) 08/29/22 11:45 Entero/Rhino (PCR) Detected (NOT DETECT) A 08/29/22 11:45 SARS-CoV-2 (PCR) Not detected (NOT DETECT) 08/29/22 11:45 Blood Type O Positive 08/28/22 07:40 Rho(D) Type Positive 08/28/22 07:40 Antibody Screen Negative 08/28/22 07:40 Crossmatch See Detail 08/28/22 07:40 Vitals Last Vital Signs Temp 98.2 F 08/31/22 04:00 Pulse 82 08/31/22 04:00 Resp 16 08/31/22 04:00 BP 91/54 08/31/22 04:00 Pulse Ox 96 08/31/22 04:00 O2 Del Method 08/31/22 04:00 Discharge Plan Discharge Patient Disposition: Home Condition: Stable Prescriptions: No Action No Known Home Medications Discharge Orders: Discharge Order (Routine); Ordered 08/31/22 Ordered By: Ashleigh Landa Referrals: Ashleigh Landa MD [Primary Care Provider] - 1 month Discharge Diet: Usual diet Discharge Activity: Limit activity as instructed Patient Instructions: Depression (DC), Bleeding (DC), Preeclampsia and Eclampsia After Delivery (GEN), Vaginal Delivery (DC), OB Discharge Report, OB Food/Drug Interaction Guide, Opioid Safety, OB Home Care, OB Proud Parent Packet Discharge Attestations Time Spent in Discharge Care*: less than 30 min Quality Metrics Clinical Quality Measures [ No reported AMI, CVA or VTE this stay] Coding Level of Care Code Acute Chg FW DC note Diagnoses fever, current hospitalization O86.4 hemorrhage, delivered, current hospitalization O72.1 Positive GBS test B95.1 Normal spontaneous vaginal delivery O80 with 37 weeks completed gestation Z3A.37
[2022-08-31] MEDS: prenatal vitamin Capsule 1 CAP PO (10:29)
[2022-08-31] MEDS: ibuprofen 800 mg tablet PO (10:29)
[2022-08-31] MEDS: docusate sodium 100 mg Capsule PO (10:29)
[2022-08-31 12:10] VITALS: BP 130/85; PULSE 87; RESP 16; TEMP 36.5; O2SAT 100
== END 2022-08-31 12:30 | disposition home or self-care (01) | DRG 807 ==
LOC: OPOB 10:05 → OBGYN 10:05
PROVIDERS: Admitting Provider Family Medicine; PCP Family Medicine; Visit Provider Family Medicine
DX: O99.824 Streptococcus B carrier state complicating childbirth (principal); Z37.0 Single live birth; O86.4 Pyrexia of unknown origin following delivery; O72.1 Other immediate postpartum hemorrhage; O72.2 Delayed and secondary postpartum hemorrhage; O90.89 Other complications of the puerperium, not elsewhere classified; R55 Syncope and collapse; Z3A.39 39 weeks gestation of pregnancy
CPT/HCPCS: 36415; 59025; 59409; 85014; 85018; 85025; 85027; 86850; 86900; 86920; 87486; 87581; 87633; J0290; J0295; J0690; J2590; J2704; J3010; J7121

== ENCOUNTER 2024-11-01 21:31 | Emergency (ER) | payer SELFPAY ==
[2024-11-01 21:33] VITALS: BP 123/81; PULSE 78; RESP 14; TEMP 36.6; O2SAT 99; BMI 21.4
--- NOTE | 2024-11-01 22:28 | ED_ITS ---
HPI - Back Pain/Injury General: Chief Complaint: Back Pain/Injury Stated Complaint: lower back pain Time Seen by Provider: 11/01/24 21:45 Source: patient Mode of arrival: ambulatory Limitations: language barrier History of Present Illness: Patient is a 39-year-old female who presents the emergency department complaining of right lower back pain onset yesterday. Employee Benefits Manager is used here, reportedly patient moved a bunch of heavy boxes a week ago and has had mild pain since but the pain severely worsened yesterday. She has not taken any medications for it states that the pain does radiate down her right leg, is having some intermittent numbness with this. No history of this previous. No loss of bowel or bladder function. No saddle anesthesia. No fevers, history of trauma, IV drug use, steroid use, history of cancer, or any other symptoms reported at this time. MD elicited complaint: back pain Onset (ago): week(s) Timing: progressively worsening Severity: severe Similar Symptoms Previously: No Location: right lower back Radiation: right leg below the knee Exacerbating factors: movement Relieving factors: immobilization Associated symptoms: Deny abdominal pain, difficulty walking, fecal incontinence, fever(s) or syncope Related Data Previous Rx's ?Medication ?Instructions ?Recorded cyclobenzaprine 5 mg tablet 5 mg PO Q8H #15 tabs 11/01 ketorolac 10 mg tablet 10 mg PO Q8H PRN pain #15 ta bs 11/01/24 Allergies Allergy/AdvReac Type Severity Reaction Status Date / Time No Known Allergies Allergy Verified 11/01/24 21:38 Review of Systems General: Reports: 10 or more systems reviewed and unremarkable except in HPI and below Const: Reports: other (denies trauma); Denies: fever(s), change in weight or night sweats Card: Denies: chest pain, lightheadedness or syncope Resp: Denies: dyspnea GI: Denies: abdominal pain or fecal incontinence : Denies: urinary incontinence Musc: Reports: back pain and extremity pain (Right lower extremity); Denies: neck pain Skin/Breast: Denies: rash or skin pain Neuro: Denies: headache(s), numbness in extremities, weakness in extremities, sensory changes, lack of coordination, difficulty walking, frequent falls or involuntary movements PFS ED PFSH: Social History Smoking and tobacco/nicotine status: never used tobacco/nicotine Physical Exam Const: COMMON NORMALS: no acute distress, patient oriented x3, no limitations, healthy appearing and alert EXAM LIMITATIONS: language barrier (Employee Benefits Manager used) Resp: COMMON NORMALS: normal respiratory effort, No retractions, No use of accessory muscles and clear to auscultation bilaterally AUSCULTATION: clear to auscultation bilaterally Cardio: COMMON NORMALS: regular rate, regular rhythm, S1 normal heart sound present and S2 normal heart sound present RATE: regular rate RHYTHM: regular rhythm HEART SOUNDS: S1 normal heart sound present and S2 normal heart sound present Back/Pelvis: COMMON NORMALS: straight leg raise negative bilaterally OTHER: Normal visual examination. No spinous process tenderness. Mild paralumbar tenderness to palpation on the right. No bruising or signs of trauma. Full active range of motion. Extremity: COMMON NORMALS: normal to inspection and full ROM Neuro: COMMON NORMALS: patient oriented x3, moves all extremities, no focal motor deficits, no sensory deficits noted, deep tendon reflexes 2+ bilaterally and gait normal SENSORIUM/ORIENTATION: Yes alert OTHER: L3, L4, L5, and S1 nerve sensations intact. Normal knee jerk and ankle jerk reflexes. Skin: COMMON NORMALS: no rashes or lesions noted GENERAL SKIN EXAM: no rashes or lesions noted Course Vital Signs: Vital signs: Vital Signs Temperature 97.9 F 11/01/24 21:33 Pulse Rate 78 11/01/24 21:33 Respiratory Rate 14 11/01/24 21:33 Blood Pressure 123/81 11/01/24 21:33 Pulse Oximetry 99 11/01/24 21:33 Oxygen Delivery Me thod Room Air 11/01/24 21:33 MDM - Back Pain/Injury Medical Decision Making Patient presenting with right lower back pain radiating to her right leg. No red flag symptoms with history or on exam. Urinalysis negative for any signs of infection. She was given IM Norflex, Toradol, and Decadron and upon recheck 30 to 45 minutes later states that she was feeling much better, this was relayed by regional construction manager. Will treat at home with prescriptions and have her follow-up with primary care. Labs Laboratory Results Urine Color Yellow (Yellow) 11/01/24 22:49 Urine Appearance Clear (CLEAR) 11/01/24 22:49 Urine pH 5.5 (5-7) 11/01/24 22:49 Ur Specific [place] 1.018 (1.005-1.030) 11/01/24 22:49 Urine Protein Negative (Negative) 11/01/24 22:49 Urine Glucose (UA) Negative (Normal) 11/01/24 22:49 Urine Ketones Negative (Negative) 11/01/24 22:49 Urine Blood 1+ (Negative) A 11/01/24 22:49 Urine Nitrate Negative (Negative) 11/01/24 22:49 Urine Bilirubin Negative (Negative) 11/01/24 22:49 Urine Urobilinogen 0.2 mg/dL (Negative) 11/01/24 22:49 Ur Leukocyte Esterase Trace (Negative) A 11/01/24 22:49 Urine RBC 3-5 /hpf (0-2) 11/01/24 22:49 Urine WBC 0-5 /hpf (0-5) 11/01/24 22:49 Ur Squamous Epith Cells 5-10 /hpf (0-5) H 11/01/24 22:49 Amorphous Sediment Not Reportable 11/01/24 22:49 Urine Bacteria Trace /hpf (NONE) 11/01/24 22:49 No radiology studies performed this visit Discharge Plan Discharge Patient Disposition: Home Clinical Impression: Lumbar radiculopathy Condition: Stable Prescriptions: New ketorolac 10 mg tablet 10 mg PO Q8H PRN (Reason: pain) Qty: 15 0RF cyclobenzaprine 5 mg tablet 5 mg PO Q8H Qty: 15 0RF Discharge Orders: Discharge ED (Routine); Ordered 11/01/24 Ordered By: Aly Chao Referrals: Ashleigh Landa MD [Primary Care Provider] - Patient Instructions: Lumbar Radiculopathy (ED) Activity Restrictions/Additional Instructions: Toradol and cyclobenzaprine as prescribed. Continue applying topical IcyHot for added relief. Heat packs as well. Range of motion exercises as tolerated. Follow-up with primary care and return with any new or worsening. Print Language: Citizen [place] Coding Level of Care Code ED Skiver Sock Linings for [facility]
[2024-11-01 22:57] LABS: Bilirubin Urine Negative (Negative); Blood Urine 1+ (Negative); Glucose Urine UA Negative (Normal); Ketones Urine Negative (Negative); Leukocyte Esterase Urine Trace (Negative); Nitrate Urine Negative (Negative); Protein Urine Negative (Negative); Specific Gravity, Urine 1.018 (1.005-1.030); Urine Appearance Clear (CLEAR); Urine Color Yellow (Yellow); Urobilinogen Urine 0.2 mg/dL (Negative); pH Urine 5.5 (5-7)
[2024-11-01] MEDS: orphenadrine 30 mg/mL Inj 2 mL 60 MG IM (22:57)
[2024-11-01] MEDS: dexamethasone 10 mg/mL INJ IM (22:57)
[2024-11-01] MEDS: ketorolac 60 mg/2 mL INJ IM (22:57)
[2024-11-01 23:24] LABS: Add Urine Microscopic? YES; Bacteria Urine TRACE /hpf; UA Manual Slide Review YES; UA Slide Review UA Slide Review Perf; WBC Urine 0-5 /hpf (0-5)
[2024-11-02 00:06] VITALS: BP 119/86; PULSE 71; RESP 18; O2SAT 98
== END 2024-11-02 00:07 | disposition home or self-care (01) ==
PROVIDERS: Emergency Provider Physician Assistant; PCP Family Medicine
DX: M54.16 Radiculopathy, lumbar region (principal)
CPT/HCPCS: 81001; 96372; 99284; J1100; J1885; J2360